=== PATIENT | female | born 1945 | race Caucasian/White ===

== ENCOUNTER 2023-02-14 13:18 | Outpatient (AMB) | payer MEDICARE, MEDICAID, SELFPAY ==
--- NOTE | 2023-02-14 13:27 | MHC.OFFVIS ---
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 She states that she noticed it about 3-4 months ago. Patient reports when she is driving she feels the base of the thumb is numb. Allergies Clindamycin HCl Adverse Reaction (Unknown, Uncoded 01/19/17 00:00) diarrhea HPI MEDIA RELATIONS ASSOCIATE- RT hand Cyst HPI Details 77-year-old right hand dominant female who presents in the office today, as a new patient, for an evaluation of right hand pain. She claims to have a cyst at the base of the right thumb. She states she noticed it 3-4 months ago. She states when she is driving the base of the right thumb is numb. Patient has an allergy history, as follows: -Clindamycin; diarrhea Patient is currently taking, as follows: -Atenolol 25 mg PO daily -Atorvastatin 10 mg PO daily -Fluoxetine 10 mg PO daily -Hydrocodone-acetaminophen 5-325 mg PO daily PRN -Triazolam 0.125 mg PO bedtime PRN Patient has no significant medical history. Patient has no significant surgical history. [facility] Social History (Updated 02/14/23 @ 13:31 by Shavon Marquez) Alcohol intake: never Patient Tobacco Use Status: Never used Tobacco Current occupational status: retired Current occupation: right hand dominant Review of Systems Const All systems reviewed & are unremarkable except as noted in HPI and below Physical Exam Vital Signs: BMI result Body Mass Index 34.2 Const General: cooperative and no acute distress Orientation/consciousness: patient oriented x3 Resp Effort & Inspection: normal respiratory effort and able to speak in complete sentences Cardio Peripheral pulses: Peripheral pulses 2+ throughout Skin General skin exam: no rashes or lesions noted Neuro General: patient oriented x3 Extrem Other: Right hand: Normal to inspection. No ecchymosis, erythema, or edema. Able to perform full finger flexion, extension, abduction, adduction, finger cross, okay sign, and thumbs up without deficit. Able to make a closed fist. Active trigger locking at the right thumb. Tenderness to palpation at the A1 hussain. Sensation intact. Capillary refill is brisk. Radial pulse intact. Assessment & Plan Assessment & Plan (1) Trigger finger of right thumb: Code(s): M65.311 - Trigger thumb, right thumb Plan Ms. Rivera is a 77-year-old right hand dominant female who presents in the office today, as a new patient, for an evaluation of right hand pain. She claims to have a cyst at the base of the right thumb. She states she noticed it 3-4 months ago. She states when she is driving the base of the right thumb is numb. Patient has an allergy history, as follows: -Clindamycin; diarrhea Patient is currently taking, as follows: -Atenolol 25 mg PO daily -Atorvastatin 10 mg PO daily -Fluoxetine 10 mg PO daily -Hydrocodone-acetaminophen 5-325 mg PO daily PRN -Triazolam 0.125 mg PO bedtime PRN Patient has no significant medical history. Patient has no significant surgical history. I discussed in detail the procedure and what to expect pre and post operatively. We discussed the risks, benefits and alternatives to the surgery as well as the rehabilitation course. The risks; which include, but are not limited to infection, bleeding, nerve injury, ongoing pain, swelling, and stiffness, perioperative risk of injury to bones and soft tissues, and blood clots. I have answered all questions and with their understanding they have consented to move forward with a right thumb trigger finger release to be performed by Dr. Peg Flowers. Surgical consent form was signed. She is now pending surgical scheduling. Follow up will be at the post operative appointment, or sooner if needed. Patient Instructions: Scribed for Deborah Kay PA-C by Licha West quality engineer medical device, on 02/14/2023 at 1:20 pm, EST. Coding Level of Care Code New Pt Level 4 (55092) Diagnoses Trigger finger of right thumb M65.311
[2023-02-14 13:31] VITALS: BMI 34.2
== END 2023-02-14 13:57 | disposition home or self-care (01) ==
PROVIDERS: Visit Provider Physician Assistant
DX: M65.311 Trigger thumb, right thumb (principal)
CPT/HCPCS: 99204

== ENCOUNTER → 2023-02-14 13:18 | Outpatient (BNVA) | payer MEDICARE, MEDICAID, SELFPAY | PROVIDERS: Visit Provider Physician Assistant ==

== ENCOUNTER 2023-03-24 11:17 | Day surgery (SDC) | payer MEDICARE, MEDICAID, SELFPAY ==
[2023-03-24 12:14] VITALS: BMI 34.2
[2023-03-24 15:30] VITALS: BP 151/88; PULSE 83; RESP 16; TEMP 36.4; O2SAT 95
--- NOTE | 2023-03-24 15:53 | MHC.SHP ---
Pre-Procedural Eval Section A Date of Service: 03/24/23 The patient is an INPATIENT: No Changes since office visit: No Cold of Flu in the past 2 weeks, No New Medical Problems, No Changes in Medication and No Patient answered all questions The History & Physical has been completed within 30 days and I have reviewed it.: Yes Section B Chief Complaint: Trigger thumb, right thumb Allergies: Allergies Allergy/AdvReac Type Severity Reaction Status Date / Time Clindamycin HCl AdvReac Unknown diarrhea Uncoded 01/19/17 00:00 Plan I have reviewed the history and physical and performed a pertinent physical examination on my patient. No changes have occurred unless specified. Time Spent With Patient Time: Total time managing care of this patient today ____ minutes.
--- NOTE | 2023-03-24 15:54 | W.PM.OPN ---
Operative Note Operative Note Date of Service: 03/24/23 Narrative: Operative Note Preop diagnosis: 1. Right thumb Trigger finger Postop diagnosis: 1. right thumb Trigger finger Procedure: 1. right thumb A1 hussain release Surgeon: Peg Flowers MD Anesthesia: local block using 1% lidocaine with epinephrine Findings: No locking or catching after A1 hussain release EBL: Less than 5 mL Tourniquet time: None Specimens: None Complications: None Disposition: Brought to recovery room in stable condition Plan: Follow-up for 10-14 days for wound check and suture removal Indications: The patient is 77 years old, with a right thumb trigger finger that has been unresponsive to nonoperative management. The risks and benefits of operative treatment including but not limited to risk of damage to blood vessels, nerves, tendons, infection, persistent pain, persistent symptoms, recurrence or possible need for additional surgery were discussed with the patient and the patient wishes to proceed with surgery. Procedure: Once consent was obtained a local block was performed in the preop area using a combination of 1% lidocaine with epinephrine. The patient was then brought back to the operating suite and placed on the operative table in supine position. The right upper extremity was prepped and draped in a standard surgical fashion. Once assured that we had a good block, a 1.5 cm oblique incision was made centered over the A1 hussain of the right thumb . The incision was made through the skin to the subcutaneous tissues using a #15 blade. Careful dissection was made down to the level of the A1 hussain using tenotomy scissors, with care being taken to protect the nearby neurovascular structures. A longitudinal incision was made in the A1 hussain 1st using a #15 blade, then using tenotomy scissors under direct visualization. The A1 hussain was noted to be thickened. Following our A1 hussain release, we no longer saw any locking or catching of the digit with flexion and extension. Once satisfied with our A1 hussain release the wound was copiously irrigated with normal saline and hemostasis was obtained with a brief period of local pressure. The skin edges were reapproximated with some 5.0 nylon suture material and a sterile dressing was applied. The patient appears to have tolerated the procedure well and with no complications. All digits were well vascularized at the conclusion of the case.
[2023-03-24 16:25] VITALS: BP 175/73; PULSE 74; RESP 18; TEMP 37.1; O2SAT 96
== END 2023-03-24 16:41 | disposition home or self-care (01) ==
PROVIDERS: PCP Internal Medicine; Visit Provider Orthopaedic Surgery
PROC: (CPT 26055; principal; 2023-03-24 12:50)
DX: M65.311 Trigger thumb, right thumb (principal); R20.0 Anesthesia of skin; Z88.1 Allergy status to other antibiotic agents; Z79.899 Other long term (current) drug therapy
CPT/HCPCS: 26055; J0171

== ENCOUNTER → 2023-03-24 11:17 | Outpatient (BNV) | payer MEDICARE, MEDICAID, SELFPAY | PROVIDERS: PCP Internal Medicine; Visit Provider Orthopaedic Surgery | DX: M65.311 Trigger thumb, right thumb (principal) | CPT/HCPCS: 26055 ==

== ENCOUNTER 2023-04-07 12:32 | Outpatient (AMB) | payer MEDICARE, MEDICAID, SELFPAY ==
--- NOTE | 2023-04-07 12:34 | MHC.OFFVIS ---
Intake Vital Signs 04/07/23 12:37 Height 5 ft 1 in Intake Visit Reasons: PO RT TR Thumb 03/24/23AR Intake Note: Promise a 77 year old female presents today for a post operative right thumb trigger release, DOS 03/24/23 AR. Patient reports she is doing well, states mild soreness. Allergies steroid Allergy (Uncoded 04/07/23 12:37) Rash Clindamycin HCl Adverse Reaction (Unknown, Uncoded 04/07/23 12:37) diarrhea HPI PO RT TR Thumb 03/24/23AR HPI Details 77-year-old female who returns to the office today for post-op trigger thumb release, 03/24/[address] Flowers. She continues to have mild pain in her thumb but is doing well otherwise. She has no other concerns today. [facility], [facility] Social History Alcohol intake: never Patient Tobacco Use Status: Never used Tobacco Current occupational status: retired Current occupation: right hand dominant Review of Systems Const All systems reviewed & are unremarkable except as noted in HPI and below Physical Exam Extrem Other: Right thumb: Incision clean, dry and intact. No erythema mild swelling. She has no locking or catching. NVI. Results Reviewed Results Reviewed: Date of Service: 03/24/23 Narrative: Operative Note Preop diagnosis: 1. Right thumb Trigger finger Postop diagnosis: 1. right thumb Trigger finger Procedure: 1. right thumb A1 hussain release Surgeon: Peg Flowers MD Assessment & Plan Assessment & Plan (1) S/P trigger finger release: Code(s): Z98.890 - Other specified postprocedural states Plan Sutures removed today, steri strips applied. She will increase activity as tolerated. I did stress imp of no lifting more than a cellphone for the next 2-3 weeks while she is healing and she should avoid submerging her hand underwater for the next week until she is fully healed. If she develops any questions or concerns or she experiences worsening pain, she will contact the office, otherwise follow-up as needed. Patient Instructions: Scribed for Barry De Los Santos PA-C, by Prem Merchant medical office secretary, on 04/07/2023 at 12:30 PM EST. IBarry PA-C, have personally reviewed and agree with the information entered by the scribe. Coding Level of Care Code Global (72375) Diagnoses S/P trigger finger release Z98.890
== END 2023-04-07 13:06 | disposition home or self-care (01) ==
PROVIDERS: Visit Provider Physician Assistant
DX: M65.311 Trigger thumb, right thumb (principal); Z48.89 Encounter for other specified surgical aftercare
CPT/HCPCS: 99024

== ENCOUNTER → 2023-04-07 12:32 | Outpatient (BNVA) | payer MEDICARE, MEDICAID, SELFPAY | PROVIDERS: Visit Provider Physician Assistant ==

== ENCOUNTER 2023-07-14 11:16 | Outpatient (REF) | payer MEDICARE, MEDICAID, SELFPAY ==
[2023-07-14 14:40] LABS: Cholesterol 177 mg/dL (<200); HDL Cholesterol 56 mg/dL (>40); LDL Cholesterol Calculated 102 mg/dL (<100); Triglycerides 98 mg/dL (<150)
== END 2023-07-14 11:17 | disposition home or self-care (01) ==
LOC: HO.WFDLDS 11:16
PROVIDERS: Visit Provider Nurse Practitioner Family
DX: I10 Essential (primary) hypertension (principal); E78.2 Mixed hyperlipidemia; I50.33 Acute on chronic diastolic (congestive) heart failure
CPT/HCPCS: 36415; 80061

== ENCOUNTER 2023-08-03 13:37 | Outpatient (AMB) | payer MEDICARE, MEDICAID, SELFPAY ==
--- NOTE | 2023-08-03 13:42 | A.OFFVIS_ITS ---
Intake Vital Signs 08/03/23 13:43 Height 5 ft 1 in Weight 187 lb 6.287 oz BMI 35.4 BP 154/65 H Blood Pressure Location Lt brachial Position Sitting Pulse 73 Intake Visit Reasons: Colonoscopy screening Intake Note: New patient in office today for colonoscopy screening. CC: Patient last colonoscopy about 6 years ago at [facility]. She reports having a cyst on her liver that needs to be monitored and has already been drained in the past . She also c/o itching hemorrhoids. Historical Archeologist Required: No Accompanied by: Self / Same As Patient Allergies trimethoprim Allergy (Severe, Verified 08/03/23 13:50) Rash clindamycin Allergy (Unknown, Verified 08/03/23 13:50) Diarrhea steroid Allergy (Uncoded 04/07/23 12:37) Rash Medication List - Last Reconciled 08/03/23 by Lilliana Roca PA-C atenolol 25 mg PO DAILY atorvastatin 10 mg PO DAILY fluoxetine 10 mg PO DAILY hydrocodone-acetaminophen 5-325 mg 1 tab PO Q4-6H PRN [methenamine PO BID] triazolam 0.125 mg PO BEDTIME PRN HPI HPI Comments History of Present Illness Details A 78 y/o female personal hx colon polyps-she expresses her anxiety she is very unsure timing of things. However last colonoscopy 6 years ago- Dr Laurent @ [facility] Was then scheduled for a repeat with Dr. Kaye-, she says though she was not do he agreed to do it but he left-so she did not follow back-those records are not available Hx R- nephrectomy-she thinks about 4 years ago she is unclear She also reports liver issues she is unable to give specifics- She has no nausea, vomiting hematemesis, hematochezia fever chills PFSH Surgical History H/O colonoscopy Social History Alcohol intake: never Patient Tobacco Use Status: Never used Tobacco Current occupational status: retired Current occupation: right hand dominant Review of Systems Const All systems reviewed & are unremarkable except as noted in HPI and below Card Denies chest pain and Denies dyspnea Resp Denies dyspnea GI Denies abdominal pain, Denies hematochezia, Denies nausea and Denies vomiting Psych Reports anxiety Physical Exam Vital Signs: Last Vital Signs Pulse 73 08/03/23 13:43 BP 154/65 H 08/03/23 13:43 BMI result Body Mass Index 35.4 Const General: cooperative, comfortable and no acute distress Nutritional Appearance: overweight Orientation/consciousness: patient oriented x3 Resp Effort & Inspection: normal respiratory effort and able to speak in complete sentences Auscultation: clear to auscultation bilaterally and no wheezes Cardio Rate: regular rate Rhythm: regular rhythm Heart sounds: S1 normal heart sound present and S2 normal heart sound present GI Inspection: Yes Abdominal panniculus present and Yes obesity Palpation (GI): Soft to palpation and nontender Auscultation: normal bowel sounds Neuro General: patient oriented x3 Extrem General: Yes full ROM Psych Speech and movement: Pressured speech present Affect: Anxious affect present Attitude: cooperative Thought process: Flight of ideas present Thought content: Normal thought content present Assessment & Plan Assessment & Plan (1) History of colon polyps: Comment: Pleasant anxious 78-year-old female with multiple GI concerns, details limited Code(s): Z86.010 - Personal history of colonic polyps Plan: Need to get records for review (2) Hemorrhoids: Code(s): K64.9 - Unspecified hemorrhoids Plan: Maintain high-fiber diet avoid straining (3) History of nephrectomy, right: Code(s): Z90.5 - Acquired absence of kidney (4) HTN (hypertension): Code(s): I10 - Essential (primary) hypertension Plan: Monitor BP Follow with PCP as scheduled Take regular medications (5) History of renal cell carcinoma: Comment: 4 yrs ago- [facility] Code(s): Z85.528 - Personal history of other malignant neoplasm of kidney (6) Liver cyst: Comment: 2020-[facility] Code(s): K76.89 - Other specified diseases of liver Plan NEED GI records from and [facility]- Get baseline labs Have her return with records available for review Maintain high-fiber diet Avoid straining with hemorrhoid Trial hemorrhoidal of cream Follow-up with PCP for hypertension Orders: Orders Comprehensive Met. Panel 08/03/23 K76.89 - Other specified diseases of liver, Z85.528 - Personal history of other malignant neoplasm of kidney Thyroid Stimulating Hormone 08/03/23 I10 - Essential (primary) hypertension, K76.89 - Other specified diseases of liver, Z85.528 - Personal history of other malignant neoplasm of kidney Complete Blood Count Auto Diff 08/03/23 I10 - Essential (primary) hypertension, K76.89 - Other specified diseases of liver, Z85.528 - Personal history of other malignant neoplasm of kidney, Z90.5 - Acquired absence of kidney Alpha Fetoprotein 08/03/23 I10 - Essential (primary) hypertension, K76.89 - Other specified diseases of liver, Z85.528 - Personal history of other malignant neoplasm of kidney Medications: New hydrocortisone 2.5% (Proctosol HC) 1 appl IN BEDTIME PRN 30 grams 3RF hemorrhoids Patient Instructions: NEED GI records from [facility] and [facility]- Get baseline labs Have her return with records available for review Maintain high-fiber diet Avoid straining with hemorrhoid Trial hemorrhoidal of cream Follow-up with PCP for hypertension Coding Level of Care Code New Pt Level 4 (66490) Diagnoses History of colon polyps Z86.010 Hemorrhoids K64.9 History of nephrectomy, right Z90.5 HTN (hypertension) I10 History of renal cell carcinoma Z85.528 Liver cyst K76.89 Time Spent (min) 30
[2023-08-03 13:43] VITALS: BP 154/65; PULSE 73; BMI 35.4
== END 2023-08-03 14:23 | disposition home or self-care (01) ==
PROVIDERS: PCP Internal Medicine; Visit Provider Physician Assistant
DX: K64.9 Unspecified hemorrhoids (principal); Z86.010 Personal history of colon polyps; K76.89 Other specified diseases of liver; Z90.5 Acquired absence of kidney; I10 Essential (primary) hypertension; Z85.528 Personal history of other malignant neoplasm of kidney
CPT/HCPCS: 99204; 99214

== ENCOUNTER → 2023-08-03 13:37 | Outpatient (BNVA) | payer MEDICARE, MEDICAID, SELFPAY | PROVIDERS: PCP Internal Medicine; Visit Provider Physician Assistant | DX: K64.9 Unspecified hemorrhoids (principal); K76.89 Other specified diseases of liver; I10 Essential (primary) hypertension; Z90.5 Acquired absence of kidney; Z85.528 Personal history of other malignant neoplasm of kidney; Z86.010 Personal history of colon polyps | CPT/HCPCS: 99202 ==

== ENCOUNTER 2023-12-23 10:33 | Outpatient (AMB) | payer MEDICARE, MEDICAID, SELFPAY ==
--- NOTE | 2023-12-23 10:34 | MHC.OFFVIS ---
Vital Signs 12/23/23 10:39 Height 5 ft 1 in Weight 182 lb 15.739 oz BMI 34.6 BP 141/58 H Blood Pressure Location Lt brachial Position Sitting Pulse 80 Intake Visit Reasons: need previous gi records Intake Note: Promise presents in the office as a follow up. CC: She states that she is here today for possible hemorrhoids, cyst on her liver 2 years ago. She was told that she needed it to be monitored. She only has one kidney. Sawmill Supervisor Required: No Allergies trimethoprim Allergy (Severe, Verified 12/23/23 10:37) Rash clindamycin Allergy (Unknown, Verified 12/23/23 10:37) Diarrhea steroid Allergy (Uncoded 12/23/23 10:37) Rash HPI HPI need previous gi records: Details: 78 yr old f here for f/u Having issues with itching from hemorrhoids she has hx of liver cysts, drained in past, told she needs to have it monitored per [facility] chart review cytology was neg for malignancy she denies abdominal pain no gerd she denies nausea, vomiting she only has one kidney - she had kidney cancer and had nephrectomy she denies fh of crc, no change in bowel habits, asking if can get colonoscopy EXAM: GENERAL: The patient is well developed and nontoxic. VITAL SIGNS:see workflow HEENT: Nonicteric sclerae, PERRLA, EOMI. Oropharynx clear. Moist mucous membranes. Conjunctivae appear well perfused. No thyroid mass. CHEST: Chest wall is nontender. HEART: Regular rate and rhythm without murmurs. LUNGS: Clear to auscultation bilaterally. ABDOMEN: Soft, positive bowel sounds, nontender, no organomegaly.no flank tenderness SKIN: No rash, no excessive bruising, petechiae, or purpura. xanthelesmata NEUROLOGIC: Cranial nerves II-XII intact without motor/sensory deficit. Psych: normal affect A/P: 1/ Liver cysts 2/ colon screening PLAN: 1/ MRI liver scan 2/ suprep for colonoscopy for rochelle anal itching PFSH Surgical History H/O colonoscopy Social History Alcohol intake: never Patient Tobacco Use Status: Never used Tobacco Current occupational status: retired Current occupation: right hand dominant Physical Exam Vital Signs: Last Vital Signs Pulse 80 12/23/23 10:39 BP 141/58 H 12/23/23 10:39 BMI result Body Mass Index 34.6 Assessment & Plan Assessment & Plan (1) Liver cyst: Comment: 2020-[facility] Code(s): K76.89 - Other specified diseases of liver Category: Medical Plan: see above (2) Hemorrhoids: Code(s): K64.9 - Unspecified hemorrhoids Category: Medical Plan: see above Orders: Orders MR abdomen wo/w con Today K76.89 - Other specified diseases of liver Medications: New sodium,potassium,mag sulfates 17.5-3.13-1.6 gram (Suprep Bowel Prep Kit) DILUTE; drink 1/2 at 6-8 pm and half at 11 PM- 1AM 354 mL 0RF Coding Level of Care Code Est Pt Level 4 (34017) Diagnoses Liver cyst K76.89 Hemorrhoids K64.9
[2023-12-23 10:39] VITALS: BP 141/58; PULSE 80; BMI 34.6
== END 2023-12-23 11:28 | disposition home or self-care (01) ==
PROVIDERS: PCP Internal Medicine; Visit Provider Internal Medicine Gastroenterology
DX: K76.89 Other specified diseases of liver (principal); K64.9 Unspecified hemorrhoids
CPT/HCPCS: 99214

== ENCOUNTER → 2023-12-23 10:33 | Outpatient (BNVA) | payer MEDICARE, MEDICAID, SELFPAY | PROVIDERS: PCP Internal Medicine; Visit Provider Internal Medicine Gastroenterology | DX: K64.9 Unspecified hemorrhoids (principal); K76.89 Other specified diseases of liver | CPT/HCPCS: 99212 ==

== ENCOUNTER 2024-02-08 11:08 | Outpatient (REF) | payer MEDICARE, MEDICAID, SELFPAY ==
--- NOTE | ~2024-02-08 | MR_ITS ---
EXAMINATION: MR ABDOMEN WITHOUT AND WITH CONTRAST CLINICAL INFORMATION: History of renal cancer. Asymptomatic. Follow-up evaluation. COMPARISON: June 17, 2022 TECHNIQUE: MR abdomen was performed without and with use of 8.5 mL intravenous Gadavist gadolinium contrast. Postcontrast images are performed in multiphase dynamic sequences. Imaging was performed in 3 planes. FINDINGS: LUNG BASES: No pleural or pericardial effusion. LIVER, GALLBLADDER, AND BILIARY TREE: The liver is normal in size and contour. No hepatic steatosis. There is a multiloculated septated hepatic cyst measuring 4.5 x 4.2 x 5.7 cm centered in hepatic segments 8 and 4. This has decreased in size from the comparison study where it measured 13.9 x 11.8 x 13.2 cm. There is some layering precontrast T1 hyperintensity. No solid enhancing components. There is mild to moderate left hepatic lobe intrahepatic biliary ductal dilatation with some left hepatic lobe atrophy involving segments 2 and 3 decreased from prior. Additional smaller adjacent left hepatic cyst measures 2.5 x 1.8 cm previously 2.5 x 1.6 cm. The common duct is dilated and measures up to 1.1 cm at the luly hepatis and tapers smoothly. No intraductal filling defects. The gallbladder is surgically absent. PANCREAS: No ductal dilatation. SPLEEN: Not enlarged. ADRENAL GLANDS: No adrenal mass. KIDNEYS AND URETERS: Status post right nephrectomy. No suspicious soft tissue within the nephrectomy bed. The left kidney is unremarkable. GASTROINTESTINAL TRACT: No bowel obstruction. No ascites or fluid collection. LYMPH NODES: Few subcentimeter retroperitoneal lymph nodes are unchanged. VASCULAR: Normal caliber abdominal aorta. MR/MR abdomen wo/w con IMPRESSION: Interval decrease in size of multiloculated septated hepatic cyst centered in hepatic segments 8 and 4. There is some layering precontrast T1 hyperintensity likely proteinaceous or hemorrhagic debris. No solid enhancing component. Status post right nephrectomy. No suspicious soft tissue within the nephrectomy bed. Electronically signed by: Héctor Solomon MD 02/24/2024 11:46 AM EDT
[2024-02-08] MEDS: gadobutroL 10 ML VIAL IVPUSH (12:04)
== END 2024-02-08 11:09 | disposition home or self-care (01) ==
LOC: HO.MRI 11:08
PROVIDERS: PCP Internal Medicine; Visit Provider Internal Medicine Gastroenterology
DX: K76.89 Other specified diseases of liver (principal)
CPT/HCPCS: 74183; A9585

== ENCOUNTER 2024-06-21 08:00 | Day surgery (SDC) | payer MEDICARE, MEDICAID, SELFPAY ==
[2024-06-19 14:35] VITALS: BMI 34.4
--- NOTE | 2024-06-20 09:03 | HO.ANESPROP2 ---
Documented by User: Radha Wilcox NP 06/20/24 09:03 HPI - Anesthesia Eval Consult details Narrative: 79yo F for Colonoscopy PMFSH Active Problems Active Problems: All Active Problems Liver cyst (Acute) History of renal cell carcinoma (Acute) HTN (hypertension) (Acute) History of nephrectomy, right (Acute) Hemorrhoids (Acute) History of colon polyps (Acute) S/P trigger finger release (Acute) Trigger finger of right thumb (Acute) Past Medical History Medical History Right renal mass Fibromyalgia GERD (gastroesophageal reflux disease) Surgical History Surgical History Hx of cholecystectomy H/O colonoscopy Social History Social History Alcohol intake: never Patient Tobacco Use Status: Never used Tobacco Use of substances other than those prescribed or required for medical reasons: No Are you DNR?: No Advance Directives: No Advance Directives Information Provided: Yes Recently lost weight without trying: No Current occupational status: retired Current occupation: right hand dominant Meds Allergies Allergy/AdvReac Type Severity Reaction Status Date / Time trimethoprim Allergy Severe Rash Verified 12/23/23 10:37 clindamycin Allergy Unknown Diarrhea Verified 12/23/23 10:37 steroid Allergy Rash Uncoded 12/23/23 10:37 Home Medications ?Medication ?Instructions ?Recorded ?Confirmed ?Last Taken ?Type atenolol 25 mg tablet 25 mg PO DAILY 02/14/23 03/24/23 06/21/24 History fluoxetine 10 mg capsule 10 mg PO DAILY 02/14/23 03/24/23 03/24/23 History triazolam 0.125 mg tablet 0.125 mg PO BEDTIME PRN Sleep 02/14/23 03/24/23 Unknown History ascorbic acid (vitamin C) 500 mg 500 mg PO BID 12/23/23 Unknown History tablet atorvastatin 20 mg tablet 20 mg PO DAILY 12/23/23 Unknown History Exam Height,Weight and Vital Signs: Height 5 ft 1 in Weight 82.554 kg Assessment and Plan Assessment Anesthesia Assessment: Chart Reviewed Documented by User: Glory Ren MD 06/21/24 09:36 [facility] Past Medical History Medical History Right renal mass Fibromyalgia GERD (gastroesophageal reflux disease) Family History Family history of problems with anesthesia: No Surgical History Surgical History Hx of cholecystectomy H/O colonoscopy History of Problems with Anesthesia: No Social History Social History Alcohol intake: never Patient Tobacco Use Status: Never used Tobacco Use of substances other than those prescribed or required for medical reasons: No Are you DNR?: No Advance Directives: No Advance Directives Information Provided: Yes Recently lost weight without trying: No Current occupational status: retired Current occupation: right hand dominant Meds Allergies Allergy/AdvReac Type Severity Reaction Status Date / Time trimethoprim Allergy Severe Rash Verified 12/23/23 10:37 clindamycin Allergy Unknown Diarrhea Verified 12/23/23 10:37 steroid Allergy Rash Uncoded 12/23/23 10:37 Home Medications ?Medication ?Instructions ?Recorded ?Confirmed ?Last Taken ?Type atenolol 25 mg tablet 25 mg PO DAILY 02/14/23 03/24/23 06/21/24 History fluoxetine 10 mg capsule 10 mg PO DAILY 02/14/23 03/24/23 03/24/23 History triazolam 0.125 mg tablet 0.125 mg PO BEDTIME PRN Sleep 02/14/23 03/24/23 Unknown History ascorbic acid (vitamin C) 500 mg 500 mg PO BID 12/23/23 Unknown History tablet atorvastatin 20 mg tablet 20 mg PO DAILY 12/23/23 Unknown History Exam Height,Weight and Vital Signs: Height 5 ft 1 in Weight 82.554 kg Vital Signs Temp Pulse Resp BP Pulse Ox O2 Del Method 06/21/24 08:46 97.9 F 76 16 191/88 H 96 Room Air Airway Mallampati Class: II TM Dist: >3cm Neck ROM: Full Loose/Missing/Broken Teeth: Yes (Missing some teeth- extracted. Denies broken or loose teeth) Heart: RRR Lungs: CTAB Assessment and Plan Assessment Anesthesia Assessment: Anesthesia Plan Discussed and Chart Reviewed Final Anesthetic Review Family History of Problems with Anesthesia: No History of Problems with Anesthesia: No NPO: Yes ASA Class: II Final Preanesthetic Review: No Changes in Pt Med Stat, Meds/Allgs Chart Reviewed, Consent Obtained/Reviewed and Anes Risks/Benef Reviewed Patient Risk: Low Procedure Risk: Low Assessment/Block/Sedation in SS: Assess/Block/Sedation-SS Anesthetic Plan Anesthetic Plan: TIVA Disposition: Standard PACU
[2024-06-21 08:46] VITALS: BP 191/88; PULSE 76; RESP 16; TEMP 36.6; O2SAT 96; BMI 35.0
--- NOTE | 2024-06-21 08:54 | MHC.SHP ---
Pre-Procedural Eval Section A - 24 Hr Update-Section A only Date of Service: 06/21/24 Section B - Complete if H&P > 30 days Chief Complaint: Unspecified hemorrhoids Relevant Family History (Specify if Yes): No Relevant Social History: None Present Medications: see Short Stay Collaborative assessment Medical History: Significant History (Right renal mass Fibromyalgia GERD (gastroesophageal reflux disease)) History of Previous Operations: Relevant previous surgery/procedure and date(s) (Hx of cholecystectomy H/O colonoscopy) Allergies: Allergies Allergy/AdvReac Type Severity Reaction Status Date / Time trimethoprim Allergy Severe Rash Verified 12/23/23 10:37 clindamycin Allergy Unknown Diarrhea Verified 12/23/23 10:37 steroid Allergy Rash Uncoded 12/23/23 10:37 Review of Systems Sugical H&P ROS: Negative: Constitution, Cardiovascular, Respiratory, Neurological, Psychiatric, Hem-Onc, Allergic/Immunologic, Gastrointestinal, Genitourinary, Musculoskeletal, Integumentary, Endocrine and Eyes/Ears/Nose/Throat Exam Surgical H&P Exam: Normal: HEENT, Normal: Heart, Normal: Lungs, Normal: Extremities, Normal: Abdomen, Normal: Skin and Normal: Neurological Plan Diagnosis/Plan: Unchanged I have reviewed the history and physical and performed a pertinent physical examination on my patient. No changes have occurred unless specified. Time Spent With Patient Time: Total time managing care of this patient today ____ minutes.
[2024-06-21] MEDS: Lactated Ringers 1,000 ML 100 ML IVCONT (09:15)
--- NOTE | 2024-06-21 10:03 | W.PM.OPN ---
Operative Note Operative Note Date of Service: 06/21/24 Narrative: Operative Information Procedure Description: Colonoscopy Indication: MAC Anesthesia: MAC COLONOSCOPY Instrument: Olympus variable stiffness pediatric scope 190L Colonoscopy Monitoring: Vital signs and clinical assessment, continuous EKG monitoring, Pulse oximetry, Carbon Dioxide monitoring and blood pressure monitoring were done throughout the procedure. Colon withdrawal time was 12 minutes. Procedure: The patient was placed in the left lateral decubitis position and pre-procedure medications were administered. After a digital rectal examination of the ano-rectum, the video colonoscope was inserted into the rectum and advanced through the colon to the cecum/TI. The colonoscope was slowly withdrawn in a retrograde panoramic fashion and the colon mucosa was carefully examined including a retroflexed view of the rectum. Findings and interventions are described below. Procedure Difficulty: easy Findings: Terminal Ileum-normal some granular appearing mucosa, bx taken from rectum and random areas Cecum: 3-5 mm flat polyp in appendiceal fold, lifted with eleview injection then removed with cold forceps Ascending Colon: 10 mm sessile polyp removed with cold snare - x 2 clips applied for hemostasis Transverse Colon -normal Descending Colon:normal Sigmoid Colon: normal Rectum: Retroflexion with small internal hemorrhoids seen, grade I Anorectum - normal Intervention: eleview injection, cold forceps, cold snare Colon preparation: [place] Bowel Preparation Scale Right colon; 2 Transverse colon: 2 Left colon; 2 (0 = Unprepared colon segment with mucosa not seen due to solid stool that cannot be cleared. 1 = Portion of mucosa of the colon segment seen, but other areas of the colon segment not well seen due to staining, residual stool and/or opaque liquid. 2 = Minor amount of residual staining, small fragments of stool and/or opaque liquid, but mucosa of colon segment seen well. 3 = Entire mucosa of colon segment seen well with no residual staining, small fragments of stool or opaque liquid) Impression and Post Procedure Diagnosis: colon polyps internal hemorrhoids Plan: High fiber diet leaflet Avoid straining at stool, epsom salts and sitz bath, anusol supps or cream Repeat Colonoscopy in 4-5 years if health allows or earlier if clinically indicated Above findings were reviewed with the patient and relevant handouts were provided if indicated.
[2024-06-21 10:08] VITALS: BP 131/70; PULSE 71; RESP 16; TEMP 36.4; O2SAT 98
[2024-06-21 10:15] VITALS: O2SAT 100
[2024-06-21 10:23] VITALS: BP 130/70; PULSE 65; RESP 18; O2SAT 97
[2024-06-21 10:38] VITALS: BP 144/78; PULSE 64; RESP 18; TEMP 36.4; O2SAT 97
== END 2024-06-21 11:23 | disposition home or self-care (01) ==
PROVIDERS: PCP Internal Medicine; Visit Provider Internal Medicine Gastroenterology
PROC: 0DJD8ZZ Inspection of Lower Intestinal Tract, Via Natural or Artificial Opening Endoscopic (ICD-10-PCS; CPT 45378; principal; 2024-06-21 10:00)
DX: Z12.11 Encounter for screening for malignant neoplasm of colon (principal); D12.2 Benign neoplasm of ascending colon; K51.40 Inflammatory polyps of colon without complications; K64.0 First degree hemorrhoids; Z86.0101 Personal history of adenomatous and serrated colon polyps; K76.89 Other specified diseases of liver; I10 Essential (primary) hypertension; Z90.5 Acquired absence of kidney; Z85.528 Personal history of other malignant neoplasm of kidney
CPT/HCPCS: 45381; 45385; 45380; 88305; J2704

== ENCOUNTER → 2024-06-21 08:00 | Outpatient (BNV) | payer MEDICARE, MEDICAID, SELFPAY | PROVIDERS: PCP Internal Medicine; Visit Provider Internal Medicine Gastroenterology | DX: K64.9 Unspecified hemorrhoids (principal); D12.2 Benign neoplasm of ascending colon; K63.5 Polyp of colon | CPT/HCPCS: 45380; 45381; 45385 ==

== ENCOUNTER 2024-07-02 10:42 | Outpatient (AMB) | payer MEDICARE, MEDICAID, SELFPAY ==
--- NOTE | 2024-07-02 10:48 | MHC.OFFVIS ---
Vital Signs 07/02/24 10:49 Height 5 ft 1 in Weight 187 lb BMI 35.3 BP 127/58 L Blood Pressure Location Lt brachial Position Sitting Pulse 75 Intake Visit Reasons: S/p colon Intake Note: Promise presents in the office as a follow up colonoscopy. CC: She states that has issues with her hemmorhoids. Allergies trimethoprim Allergy (Severe, Verified 07/02/24 10:48) Rash clindamycin Allergy (Unknown, Verified 07/02/24 10:48) Diarrhea steroid Allergy (Uncoded 07/02/24 10:48) Rash HPI HPI S/p colon: Details: 79 yr old f here for f/u recap: Having issues with itching from hemorrhoids she has hx of liver cysts, drained in past, told she needs to have it monitored per [facility] chart review cytology was neg for malignancy she denies abdominal pain no gerd she denies nausea, vomiting she only has one kidney - she had kidney cancer and had nephrectomy she denies fh of crc, no change in bowel habits, asking if can get colonoscopy TESTS: MRI 02/20- multiloculated liver cyst, no solid component, no red flags-decreased in size colo 06/23- x 2 polyps- inflammatory and adenomatous, int hemorrhoids noted INTERIM: reviewed tests as above she is bother by hemorrhoids she would like to see a surgeon taking fiber supps no abdominal pain appetite is good EXAM: GENERAL: The patient is well developed and nontoxic. VITAL SIGNS:see workflow HEENT: Nonicteric sclerae, PERRLA, EOMI. Oropharynx clear. Moist mucous membranes. Conjunctivae appear well perfused. No thyroid mass. CHEST: Chest wall is nontender. HEART: Regular rate and rhythm without murmurs. LUNGS: Clear to auscultation bilaterally. ABDOMEN: Soft, positive bowel sounds, nontender, no organomegaly.no flank tenderness SKIN: No rash, no excessive bruising, petechiae, or purpura. xanthelesmata NEUROLOGIC: Cranial nerves II-XII intact without motor/sensory deficit. Psych: normal affect A/P: 1/ Liver cysts--stable, reduced in size 2/ colon screening --polyps removed, PLAN: 1/ MRI liver scan- repeat now to see if stable 2/ rept colonoscopy 4-5 yrs 3/ refer surgery for hemorrhoids, already doing fiber [facility] Medical History Right renal mass Fibromyalgia GERD (gastroesophageal reflux disease) Surgical History Hx of cholecystectomy H/O colonoscopy Social History Alcohol intake: never Patient Tobacco Use Status: Never used Tobacco Current occupational status: retired Current occupation: right hand dominant Physical Exam Vital Signs: Last Vital Signs Pulse 75 07/02/24 10:49 BP 127/58 L 07/02/24 10:49 BMI result Body Mass Index 35.3 Assessment & Plan Assessment & Plan (1) Liver cyst: Comment: 2020-[facility] Code(s): K76.89 - Other specified diseases of liver Category: Medical Plan: see above (2) Hemorrhoids: Code(s): K64.9 - Unspecified hemorrhoids Category: Medical Plan: see above Orders: Orders MR abdomen wo/w con Today K64.9 - Unspecified hemorrhoids, K76.89 - Other specified diseases of liver Coding Level of Care Code Est Pt Level 4 (59614) Diagnoses Liver cyst K76.89 Hemorrhoids K64.9
[2024-07-02 10:49] VITALS: BP 127/58; PULSE 75; BMI 35.3
--- OUTSIDE RECORDS SUMMARY | 2024-07-02 11:34 | XMS_ITS | Clinical Summary ---
Author Organization [facility] Address [address] [facility] [address] [place] [address] Phone Care Team Providers Care Air Traffic Control Manager Name Role Phone Unavailable Primary Care Provider Unavailabl e Allergies Active Allergy Reactions Criticality Noted Date Comments Zac Inhibitors Other (see comments) 10/19/2020 Losartan Other (see comments) 10/19/2020 Prednisone 05/06/2022 Sulfa Antibiotics Other (see comments) 10/20/19 21 Medications ascorbic acid (VITAMIN C) 500 MG CR capsule Take 1 capsule by mouth 1 (one) time each day Active atenolol (TENORMIN) 25 MG tablet Take 1 tablet by mouth 1 (one) time each day Active HYDROcodone-zac taminophen (NORCO) 5-325 MG per tablet Take 1 tablet by mouth 1 (one) time each day Active triazolam (HALCION) 0.125 MG tablet Take 1 tablet by mouth at bed time 12/15/2020 Active rosuvastatin (CRESTOR) 10 MG tablet Take 10 mg by mouth 1 (one) time each day Active Active Problems Problem Noted Date Diagnosed Date Chronic kidney disease, stage 2 (mild) 3 Total nephrectomy 08/20/2021 Hypertensive renal disease 08/20/2021 Stage 3a chronic kidney disease Overview (08/20/2021): S/P R Nephrectomy - November 2019 S/P nephrectomy Hypertensive chronic kidney disease stage 3 Family History Medical History Relation Comments Cancer Father Diabetes Father Relation Status Comments Father Mother Social History Tobacco Use Types Packs/Day Years Used Date Smoking Tobacco: Never Smokeless Tobacco: Never Tobacco Cessation:Counseling Given: No Alcohol Use Standard Drinks/Week Comments No 0 (1 standard drink = 0.6 oz pur e alcohol) Comments Unknown Sex and Gender Information Value Date Recorded Sex Assigned at Not on file Legal Sex Female 4:57 PM EST Gender Identity Not on file Sexual Orientation Not on file Last Filed Vital Signs Vital Sign Reading Time Taken Comments Blood Pressure 133/79 11/03/2023 2:42 PM EDT Pulse 93 11/03/2023 2:42 PM EDT Temperature - - Respiratory Rate - - Oxygen Saturation 98% 08/20/2021 2:18 PM EDT Inhaled Oxygen Concentration - - Weight 84 kg (185 lb 3.5 oz) 11/03/2023 2:42 PM EDT Height 154.9 cm (5' 1 ) 12/19/2020 10:23 AM EDT Body Mass Index 35 12/19/2020 10:23 AM EDT Plan of Treatment Upcoming Encounters Date Type Department Care Team (Late st Contact Info) Description 11/01/2024 1:30 PM EDT Office Visit [facility] [address] [place] [phone] Kobi Lu MD [address] [phone] Health Maintenance Due Date Last Done Comments Pneumococcal Vaccine: 65+ Ye ars (1 of 2 - PCV) 1951 Influenza Vaccine (#1) 2024 Hepatitis B Vaccine Aged Out No longe r eligible based on patient's age to complete this topic Insurance [address] [place] [phone] [place]ARE [place]
--- OUTSIDE RECORDS SUMMARY | 2024-07-02 11:34 | XMS_ITS | Clinical Summary ---
Author Organization [facility] Address [address] [place] [address] Care Team Providers Care Fios Line Installer Name Role Phone Unavailable Primary Care Provider Unavailabl e Social History Tobacco Use Types Packs/Day Years Used Date Smoking Tobacco: Never Assessed Sex and Gender Information Value Date Recorded Sex Assigned at Not on file Gender Identity Not on file Sexual Orientation Not on file Plan of Treatment Health Maintenance Due Date Last Done Comments DTaP,Tdap,and Td Vaccines (1 - Tdap) 1966 Zoster Vaccines (1 of 2) 1997 Pneumococcal Vaccine: 65+ Ye ars (1 of 1 - PCV) 2012 RSV Immunization Patients 60 + Years Old (1 - 1-dose 75+ series) 2022 COVID-19 Vaccine ( - 2023-2 5 season) 2024 Influenza Vaccine (#1) 2024 HIB Vaccines Aged Out No longer eligi ble based on patient's age to complete this topic HPV Vaccines Aged Out No longer eligi ble based on patient's age to complete this topic Hepatitis A Vaccines Aged Out No long er eligible based on patient's age to complete this topic Hepatitis B Vaccines Aged Out No long er eligible based on patient's age to complete this topic IPV Vaccines Aged Out No longer eligi ble based on patient's age to complete this topic MMR Vaccines Aged Out No longer eligi ble based on patient's age to complete this topic Meningococcal ACWY Vaccine Aged Out N o longer eligible based on patient's age to complete this topic RSV Immunization Patients Un rachelle 20 months Aged Out No longer eligible b ased on patient's age to complete this topic Varicella Vaccines Aged Out No longer eligible based on patient's age to complete this topic Advance Directives Documents on File Type Date Recorded Patient Type Disk Quality Control Supervisor Expl [facility] Health Care Decision (hx) 12/10/2019 AD SONI DIRECTIVE
--- OUTSIDE RECORDS SUMMARY | 2024-07-02 11:34 | XMS_ITS | Continuity of Care Document ---
Author Organization [facility] Address [address] [place] [address] [address] [place] [phone] Phone Care Team Providers Care Interactive Media Specialist Name Role Phone Mahesh Holland MD, FACS, RVT Unavailable Unavailable Procedures Procedure Date Duplex Scan-extrem Veins; Comp Office/Oupt E&M New Pt 30 Mins Advance Directives Directive Yes / No Effective Date File Name No Information Encounters Encounter Description Practice Location Reason(s) For Visit Diagnoses Date Provider Providers Copied on Encounter [facility], [address] [place] [address] Dr Rodrigues [address], [id number], tel:[phone] [facility] Venous insufficiency (chronic) (peripheral) 3 Curly Rosenberg. [address] [facility] [address], [place], [address], [place]. tel:[phone] Referring Provider: Kobi Lu MD, [address], [place], [address]. tel:[phone] Office/Oupt E&M New Pt 30 Mins [facility], [address] [place] [address] Dr Rodrigues [address], [id number], tel:[phone] [facility] Xerosis cutisEssential (primary) hypertensionVen ous insufficiency (chronic) (peripheral) 3 Thierry CONTRERAS RVTGORDON. [address], [address], [place], [id number] , [place]. tel:[phone] Referring Provider: Kobi Lu MD, [address] [facility] [address], [place], [address]. tel:[phone] Family History Family Member Type Diagnosis Age At Onset No Information Payers Payer name Insurance type Covered constitution party ID Authoriza tion(s) Medicare KEVIN HERNÁNDEZ [id number] Medical Assistance KEVIN MORA [id number] Social History Type Description Quantity Date Captured Comments Sex Female Smoking Status No Information Chief Complaint And Reason For Visit No Information Reason For Referral Reason For Referral No Information Plan Of Treatment Date Type Action Status Goal Diet education completed Referral Ordered: Weight management: Referral to physician timeframe: 3 Months (related to Body mass index (BMI) 33.0-33.9, adult) ordered History Of Present Illness Encounter Date Complaint History Of Prese nt Illness No Information Functional Status Date Functional Assessmen t No Information Instructions Date Instruction Additional Infor mation Diet education Related to Body mass index (BMI) 33.0-33.9, adult Giving Encouragement to exercise Related to Body mass index (BMI) 33.0-33.9, adult Lifestyle education Related to B martha mass index (BMI) 33.0-33.9, adult Patient education booklet given Related to Xerosis cutis Compression stocking usage as conservative measure Related to Xerosis cutis Assessments Type Assessment Date No Information Patient Care Teams Name Effective Dates (start - stop) Status Members No Information
== END 2024-07-02 11:06 | disposition home or self-care (01) ==
PROVIDERS: PCP Internal Medicine; Visit Provider Internal Medicine Gastroenterology
DX: K76.89 Other specified diseases of liver (principal); K64.9 Unspecified hemorrhoids
CPT/HCPCS: 99214

== ENCOUNTER → 2024-07-02 10:42 | Outpatient (BNVA) | payer MEDICARE, MEDICAID, SELFPAY | PROVIDERS: PCP Internal Medicine; Visit Provider Internal Medicine Gastroenterology | DX: K76.89 Other specified diseases of liver (principal); K64.9 Unspecified hemorrhoids | CPT/HCPCS: 99212 ==

== ENCOUNTER 2024-07-25 13:22 | Outpatient (REF) | payer MEDICARE, MEDICAID, SELFPAY ==
--- NOTE | ~2024-07-25 | MR_ITS ---
EXAMINATION: MRI Abdomen without and with contrast HISTORY: K76.89 - Other specified diseases of liver COMPARISON: Comparison is made with the prior examination dated 02/08/2024. TECHNIQUE: Axial in and out of phase T1-weighted gradient echo, axial diffusion weighted, and axial and coronal HASTE T2 with fat saturation images were obtained through the abdomen. Subsequently, fat suppressed axial and coronal T1-weighted images were obtained after the intravenous administration of 8.5 mL Gadavist. FINDINGS: There is no significant loss of signal intensity within the liver on opposed phase imaging to suggest steatosis. Again seen is a septated cyst in segment IV which measures 3.7 x 3.7 x 3.9 cm on the current study (previously 4.5 x 4.5 x 5.7 cm). There is layering debris within the cyst which is T1 hyperintense and T2 hypointense, consistent with hemorrhage. The cyst is likely causing mass effect on the confluence of biliary radicles in the left lobe which are dilated. Again seen is parenchymal atrophy in the left lobe. There are additional cysts in the left lobe, the largest of which is in segment II measuring 2.4 x 1.4 x 1.4 cm. There is no enhancing liver mass. The hepatic and portal veins are patent. The gallbladder is surgically absent. The spleen, pancreas, adrenals, and left kidney are unremarkable. The patient is status post right nephrectomy. There is a large amount of magnetic susceptibility artifacts in the lateral right flank. No retroperitoneal lymphadenopathy or ascites is identified in the upper abdomen. The visualized bones demonstrate normal signal. . MR/MR abdomen wo/w con IMPRESSION: Interval decrease in size of the previously seen septated hemorrhagic cyst in segment IV of the liver, as described. This is likely causes a degree of biliary obstruction in the left lobe with associated parenchymal atrophy as seen previously. Electronically signed by: Guillermo Mcneil MD 07/25/2024 03:37 PM EST
[2024-07-25] MEDS: gadobutroL 10 ML VIAL IVPUSH (14:19)
--- OUTSIDE RECORDS SUMMARY | 2024-07-25 16:29 | XMS_ITS | Clinical Summary ---
Author Organization [facility] Address [address] [facility] [address] [place] [address] Phone Care Team Providers Care Emergency Medicine Specialist Name Role Phone Unavailable Primary Care Provider [...] [facility] Visit [facility] [address] [place] [phone] Kobi Lu MD [address] [phone] Health Maintenance Due Date Last Done Comments Pneumococcal Vaccine: 65+ Ye ars (1 of 2 - PCV) 1951 Influenza Vaccine (#1) 2024 Hepatitis B Vaccine Aged Out No longe r eligible based on patient's age to complete this topic Insurance [address] [place] [id number] [place]IC[place]
--- OUTSIDE RECORDS SUMMARY | 2024-07-25 16:29 | XMS_ITS | Encounter Summary ---
Author Organization [facility] Address [address] [place] [address] Care Team Providers Care Manager New Product Name Role Phone Brooke Davies DO Primary Care Provider Encounter Details Date Type Department Care Team (Late st Contact Info) Description 07/10/[address] [facility] - Main Lab [address] [facility] [place] [address] Steve Cabello MD [address] [facility] [address] [place] [address] Dysuria Social History Tobacco Use Types Packs/Day Years Used Date Smoking Tobacco: Never Assessed Comments Unknown Sex and Gender Information Value Date Recorded Sex Assigned at Not on file Legal Sex Female 10:42 AM EST Gender Identity Not on file Sexual Orientation Not on file documented as of this encounter Plan of Treatment Not on file documented as of this encounter Procedures Procedure Name Priority Date/Time Associated Diagnosis Comments BACTERIAL IDENTIFICATION AND SUSCEPTIBILITY, AEROBIC Routine 07/09/2024 12:00 AM EST Dysuria documented in this encounter Results * (ABNORMAL) Bacterial identification and susceptibility, aerobic (07/09/2024 12:00 AM EST) Culture, Bacterial ID and Sensitivity Predominant Enterococcus faecalis(A) CHARITY 07/13/2024 9:15 AM EST [facility] Comment: Edited result: Previously reported as Enterococcus species on 07/10/2024 at 1423 EST. Culture, Bacterial ID and Sensitivity Very Light Growth Klebsiella oxytoca ESBL(A) CHARITY 07/13/2024 9:15 AM EST [facility] Comment: THIS ORGANISM IS POSITIVE FOR EXTENDED SPECTRUM BETA-LACTAMASE (ESBL). ??EXTENDED SPECTRUM BETA-LACTAMASE ??PRODUCING ORGANISMS DEMONSTRATE DECREASED ACTIVITY WITH PENICILLILNS, CEPHALOSPORINS AND AZTREONAM. The organism value for this result has been updated. These results have been appended to the previously preliminary verified report. This is an edited result. Previous organism was Gram negative bacilli on 07/11/2024 at 1417 EST. Edited result: Previously reported as Klebsiella oxytoca on 07/12/2024 at 1002 EST. Other Urine specimen from urethra / Unknown 07/09/2024 07/10/2024 1:50 PM EST Narrative Organism Antibiotic Method Susceptibility Enterococcus faecalis Benzylpenicillin CHARITY 2 ug/ml: Susceptible Enterococcus faecalis Ampicillin CHARITY <=2 ug/ml: Susceptible Enterococcus faecalis Ciprofloxacin CHARITY <=0.5 ug/ml: Susceptible Enterococcus faecalis Levofloxacin CHARITY 0.5 ug/ml: Susceptible Enterococcus faecalis Linezolid CHARITY 2 ug/ml: Susceptible Enterococcus faecalis Vancomycin CHARITY 2 ug/ml: Susceptible Enterococcus faecalis Tetracycline CHARITY >=16 ug/ml: Resistant Enterococcus faecalis Nitrofurantoin CHARITY <=16 ug/ml: Susceptible Klebsiella oxytoca ESBL Amoxicillin/Clavulanate CHARITY 4 ug/ml: Susceptible Klebsiella oxytoca ESBL Ampicillin/Sulbactam CHARITY 16 ug/ml: Intermediate Klebsiella oxytoca ESBL Cefoxitin CHARITY <=4 ug/ml: Susceptible Klebsiella oxytoca ESBL Ceftazidime CHARITY <=0.5 ug/ml: Susceptible Klebsiella oxytoca ESBL Ceftriaxone CHARITY <=0.25 ug/ml: Susceptible Klebsiella oxytoca ESBL Cefepime CHARITY <=0.12 ug/ml: Susceptible Klebsiella oxytoca ESBL Meropenem CHARITY <=0.25 ug/ml: Susceptible Klebsiella oxytoca ESBL Amikacin CHARITY <=1 ug/ml: Susceptible Klebsiella oxytoca ESBL Gentamicin CHARITY <=1 ug/ml: Susceptible Klebsiella oxytoca ESBL Ciprofloxacin CHARITY <=0.06 ug/ml: Susceptible Klebsiella oxytoca ESBL Levofloxacin CHARITY <=0.12 ug/ml: Susceptible Klebsiella oxytoca ESBL Nitrofurantoin CHARITY 32 ug/ml: Susceptible Klebsiella oxytoca ESBL Trimethoprim/Sul famethoxazol e CHARITY <=20 ug/ml: Susceptible us Steve Cabello MD LAB MICROBIOLOGY - GENERAL ORDER MO Final Result [facility] HOSPITAL LAB [address] [place] [address], documented in this encounter Visit Diagnoses Diagnosis Dysuria documented in this encounter Additional Health Concerns Infection Onset Date Last Indicated Resolved Time ESBL 07/09/2024 07/09/2024 documented as of this encounter Care Teams Manager New Product Relationship Specialty Start Date End Date Brooke Davies DO [address] [place] [address] PCP - General Internal Medicine 07/10/24 documented as of this encounter
--- OUTSIDE RECORDS SUMMARY | 2024-07-25 16:29 | XMS_ITS | Clinical Summary ---
Author Organization [address] Address [address] [place] [address] Phone Care Team Providers Care [employer] Project Manager Name Role Phone Brooke Davies DO Primary Care Provider Encounters Date Type Department Care Team Description 07/10/2024 Lab Requisition [facility] - Main Lab [address] [facility] [place] [address] Steve Cabello MD Dysuria from Last 3 Months Social History Tobacco Use Types Packs/Day Years Used Date Smoking Tobacco: Never Assessed Comments Unknown Sex and Gender Information Value Date Recorded Sex Assigned at Not on file Legal Sex Female 10:42 AM EST Gender Identity Not on file Sexual Orientation Not on file Plan of Treatment Health Maintenance Due Date Last Done Comments DTaP,Tdap,and Td Vaccines (1 - Tdap) 1966 Pneumococcal Vaccine: 50+ Ye ars (1 of 1 - PCV) 1997 Zoster Vaccines (1 of 2) 1997 RSV Immunization Patients 60 + Years Old (1 - 1-dose 75+ series) 2022 COVID-19 Vaccine ( - 2023-2 5 season) 2024 Influenza Vaccine (#1) 2024 Depression Screening 07/11/2024 Falls Risk Assessment 07/11/2024 Hepatitis C Screening 07/11/2024 Medicare Annual Wellness Visit 07/11/2024 Osteoporosis Screening (Bone Density Screening) 07/11/2024 Social Influencers of Health Screening 07/11/2024 HIB Vaccines Aged Out No longer eligi [...] patient's age to complete this topic Meningococcal B Vacine Aged Out No lo nger eligible based on patient's age to complete this topic RSV Immunization Patients Un rachelle 20 months Aged Out No longer eligible b ased on patient's age to complete this topic Varicella Vaccines Aged Out No longer eligible based on patient's age to complete this topic Procedures Procedure Name Priority Date/Time Associated Diagnosis Comments BACTERIAL IDENTIFICATION AND SUSCEPTIBILITY, AEROBIC Routine 07/09/2024 12:00 AM EST Dysuria from Last 3 Months Results * (ABNORMAL) Bacterial identification and susceptibility, [...] Trimethoprim/Sul famethoxazol e CHARITY <=20 ug/ml: Susceptible Steve Cabello MD LAB MICROBIOLOGY - GENERAL ORDER MO Final Result Performing Organization Address [facility]/State/ZIP Co de Phone Number [facility] LAB [address] [place] [address], from Last 3 Months Additional Health Concerns Infection Onset 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
== END 2024-07-25 13:23 | disposition home or self-care (01) ==
LOC: HO.MRI 13:22
PROVIDERS: PCP Internal Medicine; Visit Provider Internal Medicine Gastroenterology
DX: K76.89 Other specified diseases of liver (principal); K64.9 Unspecified hemorrhoids
CPT/HCPCS: 74183; A9585

== ENCOUNTER → 2024-07-25 13:29 | Outpatient (BNV) | payer MEDICARE, MEDICAID, SELFPAY | PROVIDERS: PCP Internal Medicine; Visit Provider Radiology Diagnostic Radiology | DX: K76.89 Other specified diseases of liver (principal) | CPT/HCPCS: 74183 ==